=== PATIENT | male | born 1930 | race Caucasian/White ===

== ENCOUNTER 2018-02-20 13:50 | Inpatient (IN) | payer MEDICARE, OTHER ==
[~2018-02-20] VITALS: Ht 167.6 cm; Wt 74.8 kg
[2018-02-20] MEDS ORDERED: SODIUM CHLORIDE 0.9% 500 ML IV ONE (15:13)
[2018-02-20] MEDS ORDERED: ACETAMINOPHEN 325MG TABLET PO ONE (15:15)
[2018-02-20 15:40] LABS: CHLORIDE 107 mEq/L (98-107)
[2018-02-20 15:41] LABS: PROTHROMBIN TIME 10.2 sec (9.4-11.6)
[2018-02-20 15:45] LABS: BASOPHILS % 0.6 % (0.0-2.0); EOSINOPHILS % 0.1 % (0.0-5.0); HEMATOCRIT. 40.3 % (42.0-52.0); HEMOGLOBIN. 13.9 g/dL (14.0-18.0); LYMPHOCYTES % 7.3 % (20.0-50.0); MEAN CORPUSCULAR HEMOGLOBIN 34.5 pg (28.0-32.0); MEAN CORPUSCULAR VOLUME 100.5 fL (80.0-94.0); MEAN PLATELET VOLUME 7.2 fl (7.4-10.4); MONOCYTES % 6.8 % (2.0-8.0); NEUTROPHILS % 85.2 % (40.0-76.0); PLATELET 281 x1000/uL (130-400); RED BLOOD CELL COUNT 4.02 mill/uL (4.7-6.1); RED CELL DISTRIBUTION WIDTH 13.6 % (11.6-14.6)
[2018-02-20] MEDS ORDERED: KETOROLAC 15MG/ML VIAL IV ONE (17:00)
[2018-02-20 23:09] VITALS: BP 138/63
[2018-02-20] MEDS ORDERED: CLONIDINE 0.1MG TABLET PO PRN (23:15)
[2018-02-20] MEDS ORDERED: HYDROCODONE/ACETAMINOPHEN 5/325MG TABLET PO PRN (23:15)
[2018-02-20] MEDS ORDERED: ONDANSETRON HCL 4MG/2ML VIAL IV PRN (23:15)
[2018-02-21] VITALS: BP 130/80
[2018-02-21] MEDS: DEXT 5%/0.45% NACL 1000ML 1,000 ML IV SCH ×2 (01:43→15:44)
[2018-02-21] MEDS: CEFTRIAXONE 1 G PREMIX 50 ML IV SCH (01:43)
[2018-02-21 04:00] VITALS: BP 105/50
[2018-02-21 06:55] LABS: CLARITY URINE CLEAR (CLEAR); COLOR URINE YELLOW (YELLOW); KETONES URINE TRACE (NEGATIVE); LEUKOCYTE ESTERASE URINE NEGATIVE (NEGATIVE); NITRITE URINE NEGATIVE (NEGATIVE); OCCULT BLOOD URINE NEGATIVE (NEGATIVE); PH URINE 5.5 (4.5-8.0); PROTEIN URINE 1+ (NEGATIVE); SPECIFIC GRAVITY URINE 1.021 (1.005-1.030); UROBILINOGEN URINE 0.2 E.U./dL (0.2-1.0)
[2018-02-21 07:34] LABS: BASOPHILS % 0.6 % (0.0-2.0); EOSINOPHILS % 1.3 % (0.0-5.0); HEMATOCRIT. 36.1 % (42.0-52.0); HEMOGLOBIN. 12.3 g/dL (14.0-18.0); LYMPHOCYTES % 18.8 % (20.0-50.0); MEAN CORPUSCULAR HEMOGLOBIN 34.5 pg (28.0-32.0); MEAN CORPUSCULAR VOLUME 101.1 fL (80.0-94.0); MEAN PLATELET VOLUME 7.3 fl (7.4-10.4); MONOCYTES % 10.4 % (2.0-8.0); NEUTROPHILS % 68.9 % (40.0-76.0); PLATELET 237 x1000/uL (130-400); RED BLOOD CELL COUNT 3.57 mill/uL (4.7-6.1); RED CELL DISTRIBUTION WIDTH 13.6 % (11.6-14.6)
[2018-02-21 07:38] LABS: CHLORIDE 112 mEq/L (98-107)
[2018-02-21 07:57] LABS: T4 FREE 0.92 ng/dL (0.76-1.46)
[2018-02-21 07:59] LABS: LDL CHOLESTEROL 67 mg/dL (5-100)
[2018-02-21 08:00] VITALS: BP 116/56
[2018-02-21 08:01] LABS: HDL CHOLESTEROL 65 mg/dL (40-59)
[2018-02-21] MEDS: ENOXAPARIN 40MG/0.4ML SYR SUBCUT SCH (09:03)
[2018-02-21] MEDS ORDERED: MORPHINE SULFATE 4 MG/ML CPJ (NOT FOR IM USE) IV SCH (09:50)
[2018-02-21 12:00] VITALS: BP 152/47
[2018-02-21 16:00] VITALS: BP 125/50
[2018-02-21 20:00] VITALS: BP 168/69
[2018-02-21] MEDS ORDERED: ACETAMINOPHEN 650MG/20.3ML UDC PO PRN (20:00)
[2018-02-21] MEDS ORDERED: DIPHENHYDRAMINE 50MG/ML VIAL IV PRN (20:00)
[2018-02-21] MEDS ORDERED: HYDRALAZINE 20MG/ML VIAL IV PRN (20:00)
[2018-02-21] MEDS ORDERED: POLYVINYL ALCOHOL OPHTH DROPS 15ML BOTHEYE PRN (20:00)
[2018-02-21 20:54] LABS: CREATINE KINASE 178 IU/L (39-308)
[2018-02-21 20:55] LABS: CREATINE KINASE MB FRACTION 1.2 ng/mL (0.5-3.6)
[2018-02-22] VITALS: BP_SYST 114; BP_SYST 153; BP_SYST 160; BP_DIAS 60; BP_DIAS 67; BP_DIAS 70
[2018-02-22] MEDS: CEFTRIAXONE 1 G PREMIX 50 ML IV SCH (00:21)
[2018-02-22] MEDS: DEXT 5%/0.45% NACL 1000ML 1,000 ML IV SCH (03:31)
[2018-02-22 04:00] VITALS: BP 130/46
[2018-02-22] MEDS ORDERED: LEVOTHYROXINE SODIUM 50MCG TABLET PO SCH (06:45)
[2018-02-22 07:39] LABS: HEMATOCRIT 35.5 % (42.0-52.0); HEMOGLOBIN 12.2 g/dL (14.0-18.0); MEAN CORPUSCULAR HEMOGLOBIN 34.9 pg (28.0-32.0); MEAN CORPUSCULAR VOLUME 101.3 fL (80.0-94.0); PLATELET 229 x1000/uL (130-400); RED CELL DISTRIBUTION WIDTH 13.3 % (11.6-14.6)
[2018-02-22 07:41] VITALS: BP 152/89
[2018-02-22 08:10] LABS: CHLORIDE 107 mEq/L (98-107)
[2018-02-22] MEDS: ENOXAPARIN 40MG/0.4ML SYR SUBCUT SCH (09:25)
[2018-02-22 11:45] VITALS: BP 120/57
[2018-02-22] MEDS ORDERED: LEVOFLOXACIN 500MG TABLET PO SCH ×2 (14:00→14:06)
[2018-02-22 18:11] VITALS: BP 108/60
[2018-02-22 20:00] VITALS: BP 136/53
== END 2018-02-22 21:00 | DRG 604 ==
LOC: ER 14:00 → EDBEDREQ 15:26 → 5WST 18:27 → OBSVTOIN 18:27 → EDBEDREQTM 18:27 → EDBEDREQ 18:27 → CANRESERV 20:20 → ENRESERV 20:20
PROVIDERS: ADMIT Internal Medicine; ATTEND Internal Medicine
DX: S01.81XA Laceration without foreign body of other part of head, initial encounter (principal); J18.9 Pneumonia, unspecified organism; E46 Unspecified protein-calorie malnutrition; M62.82 Rhabdomyolysis; D72.829 Elevated white blood cell count, unspecified; E03.9 Hypothyroidism, unspecified; I10 Essential (primary) hypertension; N40.0 Benign prostatic hyperplasia without lower urinary tract symptoms; Z86.73 Personal history of transient ischemic attack (TIA), and cerebral infarction without residual deficits; H40.9 Unspecified glaucoma; H26.9 Unspecified cataract; R73.9 Hyperglycemia, unspecified; Z60.2 Problems related to living alone; D64.9 Anemia, unspecified; W18.39XA Other fall on same level, initial encounter; Y93.89 Activity, other specified; Y92.89 Other specified places as the place of occurrence of the external cause; Y99.8 Other external cause status; Z68.26 Body mass index [BMI] 26.0-26.9, adult
CPT/HCPCS: 36415; 70450; 71045; 72125; 72192; 73562; 73590; 73700; 80048; 80053; 80061; 81003; 82550; 82553; 83735; 83880; 84153; 84439; 84443; 84484; 85025; 85027; 85610; 87040; 87086; 93306; 97162; 97530; G0378; J0696; J1650; J1885; J2270; J3490; J7030; J7040